=== PATIENT | male | born 1955 | race Caucasian/White ===

== ENCOUNTER 2023-03-24 09:48 | Emergency (ER) | payer OTHER, SELFPAY ==
[2023-03-24 10:01] VITALS: BP 146/95; PULSE 69; RESP 18; TEMP 36.8; O2SAT 98; BMI 27.2
--- NOTE | 2023-03-24 10:11 | ED_ITS ---
HPI - Ear Problem General: Chief complaint: Headache Stated complaint: massive headache, bloody nose Time Seen by Provider: 03/24/23 09:51 History of Present Illness: 68-year-old male presents emergency department with complaints of sinus pressure and pain to the right side of his face and right ear pain. 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 He states he did feel like he had a subjective fever at that time. He states he does have yellow-green drainage from his sinuses and complains of ear pain. He denies difficulty with swallowing or eating. He denies nausea vomiting or cough. He states that he is currently out of his carvedilol and would like a refill while he is here in the emergency department since [place]. Associated symptoms: Reports ear or mastoid pain Review of Systems General: Reports: 10 or more systems reviewed and unremarkable except in HPI and below ENMT: Reports: ear or mastoid pain, nasal congestion and other (Epistaxis to the right nare with dried clotted blood.) Physical Exam Const: COMMON NORMALS: no acute distress, average body habitus, patient oriented x3, no limitations, healthy appearing, alert and well nourished HENMT: COMMON NORMALS: Normal external nose present NOSE: Normal external nose present, Normal nares present and Epistaxis present (Dried clotted blood to the right nares) on the right TYMPANIC MEMBRANE: TM abnormal TM laterality: right Details: dull, erythematous and fluid behind TM Eye: COMMON NORMALS: Equal, round and reactive pupils present, EOMs intact bilaterally, no scleral icterus and no papilledema PUPIL: Yes Equal, round and reactive pupils present DIRECT OPHTHALMOSCOPY: Yes no papilledema Neck/C-Spine: COMMON NORMALS: full ROM, no lymphadenopathy, supple, no meningeal signs and no JVD Chest: COMMONS NORMALS: normal inspection of the chest Resp: COMMON NORMALS: normal respiratory effort, No use of accessory muscles and clear to auscultation bilaterally AUSCULTATION: clear to auscultation bilaterally Cardio: COMMON NORMALS: no JVD, regular rate, regular rhythm, S1 normal heart sound present, S2 normal heart sound present, No gallops present (Cardio), No clicks present (Cardio) and Peripheral pulses 2+ throughout RATE: regular rate RHYTHM: regular rhythm HEART SOUNDS: S1 normal heart sound present and S2 normal heart sound present PERIPHERAL PULSES: Peripheral pulses 2+ throughout GI: COMMON NORMALS: Normal to inspection, nondistended, normoactive bowel sounds present, Soft to palpation and non-tender PALPATION: Yes Soft to palpation Back/Pelvis: COMMON NORMALS: thoracic and lumbar spine normal to inspection Extremity: COMMON NORMALS: normal to inspection, full ROM and capillary refill normal Neuro: COMMON NORMALS: patient oriented x3, CN's II-XII intact bilaterally, moves all extremities and no sensory deficits noted SENSORIUM/ORIENTATION: Yes alert MENINGEAL SIGNS: Yes no meningeal signs Course Vital Signs: Vital signs: Vital Signs Temperature 98.2 F 03/24/23 10:01 Pulse Rate 69 03/24/23 10:01 Respiratory Rate 18 03/24/23 10:01 Blood Pressure 146/95 03/24/23 10:01 Pulse Oximetry 98 03/24/23 10:01 Oxygen Delivery Me thod Room Air 03/24/23 10:01 MDM - Ear Medical Decision Making Physical exam completed and documented. Patient does complain of right ear pain after otoscopic examination he does appear to have a right otitis media as well as sinus congestion I will provide him antibiotics for his right otitis media as well as recommended follow-up with his primary care provider. [place] and is currently out of his carvedilol antihypertensive medications and has requested a refill and I will provide that refill here in this emergency department. Discharge Plan Discharge Patient Disposition: Home Clinical Impression: Acute right otitis media, Sinusitis Condition: Stable Prescriptions: New carvedilol 3.125 mg tablet 3.125 mg PO BID Qty: 60 1RF Rx Instructions: must administer with a meal/food amoxicillin-pot clavulanate 875-125 mg tablet 1 tab PO BID 5 Days Qty: 10 0RF Discharge Orders: Discharge ED (Routine); Ordered 03/24/23 Ordered By: Kwan Hull Patient Instructions: Opioid Safety, Pain Management Coding Level of Care Code ED Station Attendant for Danisha Miguel
[2023-03-24 10:53] VITALS: BP 146/95; PULSE 60; O2SAT 94
== END 2023-03-24 10:54 | disposition home or self-care (01) ==
PROVIDERS: Emergency Provider Internal Medicine
DX: J32.9 Chronic sinusitis, unspecified (principal); H66.91 Otitis media, unspecified, right ear
CPT/HCPCS: 99283

== ENCOUNTER 2024-12-06 20:48 | Emergency (ER) | payer OTHER, MEDICARE, SELFPAY ==
--- NOTE | 2024-12-06 20:52 | CTR_ITS ---
PROCEDURE INFORMATION: Exam: CT Head Without Contrast Exam date and time: 12/06/2024 9:17 PM Age: 69 years old Clinical indication: Injury or trauma; Fall; Blunt trauma (contusions or hematomas); Consciousness not specified; Patient fell approximately five foot from a tractor head first onto ground. Focal C/O neck and intractable mid back pain. C collar in place. TECHNIQUE: Imaging protocol: Computed tomography of the head without contrast. Radiation optimization: All CT scans at this facility use at least one of these dose optimization techniques: automated exposure control; mA and/or kV adjustment per patient size (includes targeted exams where dose is matched to clinical indication); or iterative reconstruction. COMPARISON: No relevant prior studies available. RADIATION DOSE METRICS: Total DLP (mGy-cm): 1188.51 FINDINGS: Brain: No focal hemorrhage or midline shift is identified. The ventricles and parenchyma show mild atrophy and chronic bicerebral white matter ischemic change. A few scattered old lacunes are likely. Cerebral ventricles: No ventriculomegaly or evidence of hydrocephalus. Paranasal sinuses: The partially assessed sinuses are grossly clear. Mastoid air cells: Visualized mastoid air cells are well aerated. Bones: No displaced skull fracture is noted. Soft tissues: Unremarkable. Vasculature: Diffuse vascular calcifications are present. CT/CT head wo con* [id number] IMPRESSION: 1. No acute intracranial hemorrhage. 2. Mild age-related changes.
--- NOTE | 2024-12-06 20:52 | CTR_ITS ---
PROCEDURE INFORMATION: Exam: CT Cervical Spine Without Contrast Exam date and time: 12/06/2024 9:23 PM Age: 69 years old Clinical indication: Injury or trauma; Fall; Blunt trauma; Patient fell approximately five foot from a tractor head first onto ground. Focal C/O neck and intractable mid back pain. C collar in place. TECHNIQUE: Imaging protocol: Computed tomography of the cervical spine without contrast. Radiation optimization: All CT scans at this facility use at least one of these dose optimization techniques: automated exposure control; mA and/or kV adjustment per patient size (includes targeted exams where dose is matched to clinical indication); or iterative reconstruction. COMPARISON: CT facial bones wo con* [id number] 12/06/2024 9:20 PM RADIATION DOSE METRICS: Total DLP (mGy-cm): 494.67 FINDINGS: Bones: No acute cervical spine fracture. There is mild cervical degenerative change with loss of disc space and osteophyte formation. No jumped, locked or perched facets are visualized. No aggressive bone lesion is noted. Right posterior 1st through 3rd rib fractures are seen, partially assessed. Chest CT pending. Lungs: Lung apices show no acute process. Motion obscured. Vasculature: Advanced diffuse vascular calcification noted. Soft tissues: Unremarkable. CT/CT cervical spin wo con* [id number] IMPRESSION: 1. No acute fracture is seen in the cervical spine. 2. Right posterior 1st through 3rd rib fractures are seen, partially assessed. Chest CT pending. 3. Mild cervical degenerative change as discussed. Other chronic findings above.
--- NOTE | 2024-12-06 20:52 | CTR_ITS ---
PROCEDURE INFORMATION: Exam: CT Chest With Contrast; Diagnostic Exam date and time: 12/06/2024 9:27 PM Age: 69 years old Clinical indication: Injury or trauma; Fall; Blunt; Prior surgery; Surgery date: 6+ months; Surgery type: Cabg. Umbilical hernia repair; Patient fell approximately five foot from a tractor head first onto ground. Focal C/O neck and intractable mid back pain. C collar in place. TECHNIQUE: Imaging protocol: Diagnostic computed tomography of the chest with contrast. Radiation optimization: All CT scans at this facility use at least one of these dose optimization techniques: automated exposure control; mA and/or kV adjustment per patient size (includes targeted exams where dose is matched to clinical indication); or iterative reconstruction. Contrast material: OMNI 350; Contrast volume: 100 ml; Contrast route: INTRAVENOUS (IV); COMPARISON: CR (CHEST, ) 12/06/2024 8:58 PM RADIATION DOSE METRICS: Total DLP (mGy-cm): 3.57 FINDINGS: Lungs: Mild scattered atelectasis. The lungs are otherwise clear. Pleural spaces: Unremarkable. No pneumothorax. No pleural effusion. Heart: Unremarkable. No cardiomegaly. No pericardial effusion. Coronary arteries: Coronary artery calcifications. Lymph nodes: Unremarkable. No enlarged lymph nodes. Vasculature: Unremarkable. No aortic aneurysm. Bones/joints: Median sternotomy changes. Mildly displaced posterior right 1st through 4th and 6th and 7th rib fractures. Mildly displaced bilateral T7 and right T8 transverse process fractures. Mildly displaced posterior left 4th, 6th, and 7th rib fractures. Acute mildly displaced and mildly comminuted transverse fracture in the superior T8 vertebral body, without compression. Minimal compression of superior T3. The other vertebral bodies maintain normal stature. Soft tissues: Mild T8 paravertebral soft tissue edema/hemorrhage. PROCEDURE INFORMATION: Exam: CT Abdomen And Pelvis With Contrast Exam date and time: 12/06/2024 9:27 PM Age: 69 years old Clinical indication: Injury or trauma; Fall; Blunt; Prior surgery; Surgery date: 6+ months; Surgery type: Cabg. Umbilical hernia repair; Patient fell approximately five foot from a tractor head first onto ground. Focal C/O neck and intractable mid back pain. C collar in place. TECHNIQUE: Imaging protocol: Computed tomography of the abdomen and pelvis with contrast. Radiation optimization: All CT scans at this facility use at least one of these dose optimization techniques: automated exposure control; mA and/or kV adjustment per patient size (includes targeted exams where dose is matched to clinical indication); or iterative reconstruction. Contrast material: OMNI 350; Contrast volume: 100 ml; Contrast route: INTRAVENOUS (IV); COMPARISON: CR (CHEST, ) 12/06/2024 8:58 PM RADIATION DOSE METRICS: Total DLP (mGy-cm): 2073.57 FINDINGS: Liver: Normal. No mass. Gallbladder and biliary ducts: Sludge and/or small noncalcified stones in the gallbladder. No wall thickening. The bile ducts are within normal limits. Pancreas: Normal. No ductal dilation. Spleen: Normal. No splenomegaly. Adrenal glands: Normal. No mass. Kidneys and ureters: 2.7 cm circumscribed lesion in the posterior left kidney, 53 Hounsfield units. Cortical cyst in the right kidney, Hounsfield units 20. Additional hypodense lesions in both kidneys are too small to characterize and are most likely cysts. No calculus or hydronephrosis. Stomach and bowel: Unremarkable. No obstruction. No mucosal thickening. Appendix: No evidence of appendicitis. Intraperitoneal space: Unremarkable. No free air. No significant fluid collection. Vasculature: Calcified arterial plaque. No aneurysm. Lymph nodes: Unremarkable. No enlarged lymph nodes. Urinary bladder: Unremarkable as visualized. Reproductive: Unremarkable as visualized. Bones/joints: Curvature of the lumbar spine. No fracture. Mild degenerative changes of the spine. Soft tissues: Fat containing bilateral inguinal hernias, right larger than left. CT/CT chest abdpel w/*[id number] IMPRESSION: 1. Acute mildly displaced transverse fracture in the superior T8 vertebral body, without compression. 2. Minimal compression fracture of superior T3. 3. Multiple bilateral rib fractures as described. 4. Bilateral T7 and right T8 transverse process fractures. IMPRESSION: No acute findings. COMMENTS: Consistent with the [employer]'s Incidental Findings Committee white paper (J Am Woody Radiol 2018): Any incidental renal lesion less than 1 cm or classified as too small to characterize, or any incidental cystic renal lesion characterized as simple-appearing, is likely benign. No follow-up imaging is recommended for these lesions per consensus recommendations based on imaging criteria.
--- NOTE | 2024-12-06 20:52 | CTR_ITS ---
PROCEDURE INFORMATION: Exam: CT Maxillofacial Without Contrast Exam date and time: 12/06/2024 9:20 PM Age: 69 years old Clinical indication: Injury or trauma; Fall; Blunt trauma (contusions or hematomas); Prior surgery; Surgery type: Dental; Patient fell approximately five foot from a tractor head first onto ground. Focal C/O neck and intractable mid back pain. C collar in place. TECHNIQUE: Imaging protocol: Computed tomography of the face without contrast. Radiation optimization: All CT scans at this facility use at least one of these dose optimization techniques: automated exposure control; mA and/or kV adjustment per patient size (includes targeted exams where dose is matched to clinical indication); or iterative reconstruction. COMPARISON: CT head wo con* [id number] 12/06/2024 9:17 PM RADIATION DOSE METRICS: Total DLP (mGy-cm): 595.28 FINDINGS: Paranasal sinuses: No significant sinus disease is apparent. Orbital cavities: Orbits and globes are unremarkable. Bones: No acute fracture. Soft tissues: Advanced diffuse vascular calcification noted. Mild areas of anterior facial swelling. CT/CT facial bones wo con* [id number] IMPRESSION: No acute facial fracture noted.
--- NOTE | 2024-12-06 20:52 | XRR_ITS ---
PROCEDURE INFORMATION: Exam: XR Chest Exam date and time: 12/06/2024 8:58 PM Age: 69 years old Clinical indication: Injury or trauma; Fall; Blunt trauma (contusions or hematomas); Prior surgery; Surgery date: 6+ months; Surgery type: Cabg; Patient fell approximately five foot from a tractor head first onto ground. Focal C/O neck and intractable mid back pain. C collar in place. TECHNIQUE: Imaging protocol: Radiologic exam of the chest. Views: 1 view. COMPARISON: No relevant prior studies available. FINDINGS: Lungs: Minor areas of bibasilar atelectasis or scarring. No consolidation. Pleural spaces: Unremarkable. No pleural effusion. No pneumothorax. Heart/Mediastinum: Heart is large. CABG with vascular calcification. Bones/joints: No obvious displaced fracture. XR/XR chest 1V portable [id number] IMPRESSION: 1. No acute findings. 2. A few chronic/incidental findings above. 3. Chest CT pending.
--- NOTE | 2024-12-06 20:54 | ED_ITS ---
HPI - Trauma 2 General: Chief Complaint: Fall Stated Complaint: fall Time Seen by Provider: 12/06/24 20:49 Source: patient Mode of arrival: ambulatory Limitations: no limitations History of Present Illness: 69-year-old male states he had fell roug hly 5 to 6 feet off the tractor. States he landed on his head and his back. He states he has a headache denies any loss conscious states he has mild neck pain states he has severe back pain along with chest pain. He rates his pain an 8 out of 10 he is ambulatory denies any pain in his extremities. Associated symptoms: Reports abdominal pain, back pain, chest pain and headache(s); Denies chills, dental pain, fever(s), nausea or vomiting Related Data Previous Rx's ?Medication ?Instructions ?Recorded carvedilol 3.125 mg tablet 3.125 mg PO BID #60 tabs Allergies Allergy/AdvReac Type Severity Reaction Status Date / Time No Known Allergies Allergy Verified 12/06/24 21:01 Review of Systems 2 Const: Denies: fever(s), chills, body aches or change in appetite ENMT: Denies: throat pain or dental pain Card: Reports: chest pain Resp: Denies: dyspnea GI: Reports: abdominal pain; Denies: nausea, vomiting or diarrhea Musc: Reports: neck pain and back pain Skin/Breast: Denies: rash Neuro: Reports: headache(s) Physical Exam 2 Const: COMMON NORMALS: no acute distress, patient oriented x3 and healthy appearing HENMT: COMMON NORMALS: normocephalic HEAD & SCALP: normocephalic OTHER: abrasion to left forehead Eye: COMMON NORMALS: Equal, round and reactive pupils present and EOMs intact bilaterally PUPIL: Yes Equal, round and reactive pupils present Neck/C-Spine: OTHER: in c colar Chest: COMMONS NORMALS: normal inspection of the chest OTHER: mild tenderness over chest Resp: COMMON NORMALS: normal respiratory effort, No retractions, No use of accessory muscles and clear to auscultation bilaterally AUSCULTATION: clear to auscultation bilaterally Cardio: COMMON NORMALS: regular rate, regular rhythm and No murmurs present (Cardio) RATE: regular rate RHYTHM: regular rhythm GI: COMMON NORMALS: Normal to inspection, nondistended, normoactive bowel sounds present, Soft to palpation, non-tender and no masses PALPATION: Yes Soft to palpation Extremity: COMMON NORMALS: normal to inspection and full ROM Neuro: COMMON NORMALS: patient oriented x3, moves all extremities and no focal motor deficits Psych: COMMON NORMALS: mental status grossly normal, Normal thought process present and cooperative THOUGHT PROCESS: Normal thought process present Skin: COMMON NORMALS: no rashes or lesions noted and no wounds GENERAL SKIN EXAM: no rashes or lesions noted Course 2 Vital Signs: Vital signs: Vital Signs Temperature 98.0 F 12/06/24 20:57 Pulse Rate 65 12/06/24 22:48 Respiratory Rate 18 12/06/24 22:48 Blood Pressure 168/87 12/06/24 22:48 Pulse Oximetry 94 12/06/24 22:48 Oxygen Delivery Me thod Nasal Cannula 12/06/24 22:13 MDM - Trauma Medical Decision Making Patient presents after a fall after a tractor he has multiple rib fractures bilaterally no pneumothorax he is requiring 2 L of oxygen here. He also has thoracic spine fracture head CT cervical spine CTs are normal spoke to [facility] will transfer there for higher level care of trauma capabilities. Medical Records I reviewed the patient's medical records. Lab Data I reviewed the patient's lab results. 12/06/24 21:03 12/06/24 21:03 Radiology Impressions Cervical Spine CT 12/06/24 20:52 IMPRESSION: 1. No acute fracture is seen in the cervical spine. 2. Right posterior 1st through 3rd rib fractures are seen, partially assessed. Chest CT pending. 3. Mild cervical degenerative change as discussed. Other chronic findings above. Chest X-Ray 12/06/24 20:52 IMPRESSION: 1. No acute findings. 2. A few chronic/incidental findings above. 3. Chest CT pending. Chest/Abdomen/Pelvis CT 12/06/24 20:52 IMPRESSION: 1. Acute mildly displaced transverse fracture in the superior T8 vertebral body, without compression. 2. Minimal compression fracture of superior T3. 3. Multiple bilateral rib fractures as described. 4. Bilateral T7 and right T8 transverse process fractures. IMPRESSION: No acute findings. COMMENTS: Consistent with the [place]'s Incidental Findings Committee white paper (J Am Woody Radiol 2018): Any incidental renal lesion less than 1 cm or classified as too small to characterize, or any incidental cystic renal lesion characterized as simple-appearing, is likely benign. No follow-up imaging is recommended for these lesions per consensus recommendations based on imaging criteria. Face CT 12/06/24 20:52 IMPRESSION: No acute facial fracture noted. Head CT 12/06/24 20:52 IMPRESSION: 1. No acute intracranial hemorrhage. 2. Mild age-related changes. Laboratory Results WBC 9.52 10^3/uL (3.29-11.43) 12/06/24 21:03 RBC 4.77 10^6/uL (3.85-5.65) 12/06/24 21:03 Hgb 13.80 g/dL (11.27-16.99) 12/06/24 21: Hct 43.1 % (37-53) 12/06/24 21: MCV 90.4 fl (82-101) 12/06/24 21: MCH 28.9 pg (27-33) 12/06/24 21: MCHC 32.0 g/dL (30-55) 12/06/24 21: RDW 15.4 % (12.1-15.1) H 12/06/24 21:03 Plt Count 276 10^3/cmm (157-399) 12/06/24 21:03 MPV 11.1 fL (7.4-10.4) H 12/06/24 21:03 Neut % (Auto) 77.8 % 12/06/24 21: Lymph % (Auto) 11.4 % 12/06/24: [place] % (Auto) 6.2 % 12/06/24 21: Eos % (Auto) 2.4 % 12/06/24 21:03 Baso % (Auto) 0.4 % 12/06/24: Neut # (Auto) 7.40 10^3/uL (1.8-7.7) 12/06/24 21: Lymph # (Auto) 1.1 10^3/uL (0.8-4.8) 12/06/24 21:03 [place] # (Auto) 0.6 10^3/uL (0.2-0.9) 12/06/24 21:03 Eos # (Auto) 0.2 10^3/uL (0.0-0.8) 12/06/24 21:03 Baso # (Auto) 0.0 10^3/uL (0.0-0.1) 12/06/24 21:03 Nucleated RBC % (auto) 0 % 12/06/24 21:03 Nucleated RBCs # 0.0 /100WBC 12/06/24 21:03 Sodium 144 mmol/L (136-145) 12/06/24 21:03 Potassium 5.0 mmol/L (3.5-5.1) 12/06/24 21:03 Chloride 105 mmol/L (98-107) 12/06/24 21:03 Carbon Dioxide 25 mmol/L (22-29) 12/06/24 21:03 Anion Gap 19.0 (5-19) 12/06/24 21:03 BUN 41 mg/dL (8-23) H 12/06/24 21:03 Creatinine 1.2 mg/dL (0.7-1.2) 12/06/24 21:03 GFR Calculation 60.2 mL/min (90-130) L 12/06/24 21:03 Glucose 193 mg/dL (65-115) H 12/06/24 21:03 Calculated Osmolality 313 mOsm/kg (285-295) H 12/06/24 21:03 Calcium 9.8 mg/dL (8.5-10.5) 12/06/24 21:03 All radiology interpretation(s) finalized by discharge Discharge Plan Discharge Patient Disposition: Xfer Short-Term Hosp Clinical Impression: Fall, Closed rib fracture, Fracture of thoracic spine Condition: Stable Prescriptions: No Action carvedilol 3.125 mg tablet 3.125 mg PO BID Qty: 60 1RF Rx Instructions: must administer with a meal/food Print Language: [place] Coding Level of Care Code ED Smt Technician for Danisha Miguel
[2024-12-06 20:57] VITALS: BP 109/88; PULSE 61; RESP 18; TEMP 36.7; O2SAT 93
[2024-12-06] MEDS: HYDROmorphone 0.5 MG/0.5 ML INJ IVP (21:06)
[2024-12-06] MEDS: ondansetron 2 mg/ML SDV 2 mL 4 MG IVP (21:06)
[2024-12-06 21:17] LABS: Basophils % 0.4 %; Eosinophils # 0.2 10^3/uL (0.0-0.8); Eosinophils % 2.4 %; Hematocrit 43.1 % (37-53); Lymphocytes # 1.1 10^3/uL (0.8-4.8); Lymphocytes % 11.4 %; Mean Corpuscular Hemoglobin 28.9 pg (27-33); Mean Corpuscular Volume 90.4 fl (82-101); Mean Platelet Volume 11.1 fL (7.4-10.4); Monocytes # 0.6 10^3/uL (0.2-0.9); Monocytes % 6.2 %; Neutrophils % 77.8 %; Nucleated Red Blood Cells % 0 %; Platelet Count 276 10^3/cmm (157-399); Red Blood Count 4.77 10^6/uL (3.85-5.65); Red Cell Distribution Width 15.4 % (12.1-15.1); White Blood Count 9.52 10^3/uL (3.29-11.43)
[2024-12-06 21:33] LABS: Blood Urea Nitrogen 41 mg/dL (8-23); Calcium 9.8 mg/dL (8.5-10.5); Carbon Dioxide 25 mmol/L (22-29); Chloride 105 mmol/L (98-107); Creatinine Clr Calc Pharmacy 65.9837; Glomerular Filtration Rate 60.2 mL/min (90-130); Glucose 193 mg/dL (65-115); Osmolality Calculated 313 mOsm/kg (285-295); Sodium 144 mmol/L (136-145)
[2024-12-06] MEDS: iohexol 350 mg/mL 500 mL Btl (per mL) IV (21:42)
[2024-12-06] MEDS: HYDROmorphone 0.5 MG/0.5 ML INJ 1 MG IVP (21:51)
[2024-12-06 22:13] VITALS: BP 179/85; PULSE 69; RESP 20; O2SAT 96
[2024-12-06 22:48] VITALS: BP 168/87; PULSE 65; RESP 18; O2SAT 94
[2024-12-06 23:32] VITALS: BP 153/68; PULSE 64; RESP 18; O2SAT 97
[2024-12-07] MEDS: HYDROmorphone 0.5 MG/0.5 ML INJ 1 MG IVP ×2 (00:09→08:13)
--- NOTE | 2024-12-07 02:18 | PC.NURSE ---
Pt. upset about waiting on EMS to come transfer him to [facility] . I have explained that I have no control over the timing of his transfer.
[2024-12-07 02:47] VITALS: BP 128/64; PULSE 63; RESP 18; O2SAT 96
[2024-12-07] MEDS: morphine 4 mg/mL SDV 1 mL IVP (04:13)
[2024-12-07 06:27] VITALS: BP 168/73; PULSE 61; RESP 18; O2SAT 97
[2024-12-07 07:00] VITALS: BP 166/69; PULSE 63; O2SAT 95
--- NOTE | 2024-12-07 07:04 | PC.NURSE ---
Addendum entered by Bella Chan RN 12/07/24 07:33: this RN took over pt care from CRISTO Black. pt updated on ride status. Original Note: took over pt care from CRISTO Black. pt waiting on ride to [facility].
--- NOTE | 2024-12-07 07:09 | XRR_ITS ---
PROCEDURE INFORMATION: Exam: XR Chest Exam date and time: 12/07/2024 7:37 AM Age: 69 years old Clinical indication: Cough and dyspnea; Additional info: Dyspnea/cough TECHNIQUE: Imaging protocol: Radiologic exam of the chest. Views: 1 view. COMPARISON: CT chest abdpel w/*[id number] 12/06/2024 9:27 PM FINDINGS: Lungs: Minimal infiltrate versus atelectasis of the left lung base. The right lung is clear. Pleural spaces: Unremarkable. No pleural effusion. No pneumothorax. Heart/Mediastinum: Status post CABG. Bones/joints: Status post median sternotomy. XR/XR chest 1V portable [id number] IMPRESSION: Minimal infiltrate versus atelectasis of the left lung base.
[2024-12-07 07:30] VITALS: BP 155/72; PULSE 66; O2SAT 96
[2024-12-07 07:31] LABS: Basophils % 0.3 %; Eosinophils % 0.1 %; Hematocrit 42.8 % (37-53); Lymphocytes # 0.5 10^3/uL (0.8-4.8); Lymphocytes % 5.5 %; Mean Corpuscular HGB Conc 31.8 g/dL (30-55); Mean Corpuscular Hemoglobin 28.9 pg (27-33); Mean Corpuscular Volume 90.9 fl (82-101); Mean Platelet Volume 10.9 fL (7.4-10.4); Monocytes # 0.7 10^3/uL (0.2-0.9); Monocytes % 7.4 %; Neutrophils # 8.39 10^3/uL (1.8-7.7); Neutrophils % 86.3 %; Nucleated Red Blood Cells % 0 %; Platelet Count 234 10^3/cmm (157-399); Red Blood Count 4.71 10^6/uL (3.85-5.65); Red Cell Distribution Width 15.6 % (12.1-15.1); White Blood Count 9.72 10^3/uL (3.29-11.43)
[2024-12-07] MEDS: ondansetron 2 mg/ML SDV 2 mL 4 MG IVP (07:35)
[2024-12-07] MEDS: HYDROmorphone 0.5 MG/0.5 ML INJ IVP (07:35)
[2024-12-07 07:55] LABS: Alanine Aminotransferase 26 U/L (0-41); Albumin Level 4.4 g/dL (3.5-5.2); Alkaline Phosphatase 83 U/L (40-130); Aspartate Amino Transferase 32 U/L (0-40); Blood Urea Nitrogen 45 mg/dL (8-23); Calcium 9.4 mg/dL (8.5-10.5); Carbon Dioxide 24 mmol/L (22-29); Chloride 104 mmol/L (98-107); Creatinine Clr Calc Pharmacy 65.9837; Globulin 3.6 g/dL (1.3-4.6); Glomerular Filtration Rate 60.2 mL/min (90-130); Glucose 211 mg/dL (65-115); Osmolality Calculated 312 mOsm/kg (285-295); Sodium 142 mmol/L (136-145); Total Bilirubin 0.7 mg/dL (0.15-1.2)
[2024-12-07 08:00] VITALS: BP 164/75; PULSE 67; O2SAT 98
--- NOTE | 2024-12-07 08:17 | PC.NURSE ---
pt verbalized that he was upset with issue with transportation, pt states 'this is ridiculous i have been waiting since 11 last night to be transferred'. this rn reassured the pt that [facility] would be here as soon as they can to get pt to [place].
[2024-12-07 09:00] VITALS: BP 150/79; PULSE 65; O2SAT 96
== END 2024-12-07 09:02 | disposition short-term general hospital (02) ==
PROVIDERS: Emergency Medicine; Emergency Provider Family Medicine
DX: S22.41XA Multiple fractures of ribs, right side, initial encounter for closed fracture (principal); S22.069A Unspecified fracture of T7-T8 vertebra, initial encounter for closed fracture; V84.4XXA Person injured while boarding or alighting from special agricultural vehicle, initial encounter
CPT/HCPCS: 70450; 70486; 71045; 71260; 72125; 74177; 80048; 80053; 85025; 96374; 96375; 99285; J1171; J2270; J2405